=== PATIENT | female | born 1985 | race Caucasian/White ===

== ENCOUNTER 2020-02-10 18:28 | Emergency (ER) | payer BC, MEDICAID, MEDICARE ==
[~2020-02-10] VITALS: Ht 162.6 cm; Wt 87.7 kg
--- NOTE | 2020-02-10 21:09 | NUR ---
Provider is with the patient at this time.
--- NOTE | 2020-02-10 21:36 | NUR ---
Chaperoned exam of the inner thigh area with the provider.
[2020-02-10] MEDS ORDERED: CEPH250T PO (21:44)
[2020-02-10 22:19] VITALS: BP 132/71
== END 2020-02-10 22:17 | disposition home or self-care (01) ==
LOC: ER 18:28
DX: L08.89 Other specified local infections of the skin and subcutaneous tissue (principal); L30.4 Erythema intertrigo; R31.9 Hematuria, unspecified; Z79.2 Long term (current) use of antibiotics
CPT/HCPCS: 99283